=== PATIENT | male | born 2000 | race Caucasian/White ===

== ENCOUNTER 2023-02-01 11:13 | Emergency (ER) | payer MEDICAID, OTHER ==
[~2023-02-01] VITALS: Ht 180.3 cm; Wt 82.0 kg
[2023-02-01 11:28] VITALS: BP 124/27
[2023-02-01] MEDS ORDERED: MAGNESIUM/ALUMINUM HYDROXIDE/SIMETHICONE 30ML UDC PO STA ×2 (13:06)
[2023-02-01] MEDS ORDERED: ONDANSETRON 4MG ODT PO STA (13:06)
== END 2023-02-01 15:05 | disposition home or self-care (01) ==
LOC: ER 11:42
DX: R11.2 Nausea with vomiting, unspecified (principal); F41.9 Anxiety disorder, unspecified; F32.9 Major depressive disorder, single episode, unspecified; F12.10 Cannabis abuse, uncomplicated
CPT/HCPCS: 99283; Q0162

== ENCOUNTER 2023-02-05 12:01 | Emergency (ER) | payer OTHER ==
[~2023-02-05] VITALS: Ht 170.2 cm; Wt 75.0 kg
[2023-02-05 13:34] LABS: BASOPHILS % 0.7 % (0.0-2.0); EOSINOPHILS % 0.6 % (0.0-5.0); HEMATOCRIT. 46.7 % (42.0-52.0); HEMOGLOBIN. 15.8 g/dL (14.0-18.0); LYMPHOCYTES % 17.7 % (20.0-50.0); MEAN CORPUSCULAR VOLUME 76.6 fL (80.0-94.0); PLATELET 251 x1000/uL (130-400); RED BLOOD CELL COUNT 6.09 mill/uL (4.7-6.1); RED CELL DISTRIBUTION WIDTH 13.9 % (11.6-14.6)
[2023-02-05 13:43] LABS: CHLORIDE 94 mEq/L (98-107)
[2023-02-05] MEDS ORDERED: ACETAMINOPHEN 325MG TABLET PO NR (14:18)
[2023-02-05] MEDS ORDERED: FAMOTIDINE 20MG/2ML VIAL IV NR (14:30)
[2023-02-05] MEDS ORDERED: SODIUM CHLORIDE 0.9% 1,000 ML IV ONE (14:30)
[2023-02-05] MEDS ORDERED: KCL 20MEQ/100ML PREMIX 100 ML IV NR (14:30)
[2023-02-05] MEDS ORDERED: POTASSIUM CHLORIDE 20MEQ TABLET SR PO NR (14:30)
[2023-02-05] MEDS ORDERED: ONDANSETRON HCL 4MG/2ML INJ IV NR (14:30)
[2023-02-05] MEDS ORDERED: FAMO20TA8 PO (18:47)
[2023-02-05] MEDS ORDERED: ACET-2708 PO (18:47)
[2023-02-05] MEDS ORDERED: ONDA4TAB50 PO (18:47)
[2023-02-05 19:27] VITALS: BP 127/69
== END 2023-02-05 19:30 | disposition home or self-care (01) ==
LOC: ER 12:01
DX: K29.00 Acute gastritis without bleeding (principal); E87.6 Hypokalemia; F41.9 Anxiety disorder, unspecified; F32.9 Major depressive disorder, single episode, unspecified; F12.10 Cannabis abuse, uncomplicated
CPT/HCPCS: 36415; 80053; 85025; 96365; 96366; 96375; 99284; J2405; J3480; J3490; Z7610